=== PATIENT | female | born 1945 | race Caucasian/White ===

== ENCOUNTER 2018-11-14 07:12 | Day surgery (SDC) | payer OTHER ==
[~2018-11-14 07:12] MED LIST: BRIMONIDINE TARTRATE 0.2% OPTH SOL OP PRN; BSS WITH EPINEPHRINE OP ONE; DEX-MOXI-KETOR OPTH INJ 1/0.5/0.4 MG/ML IO ONE; LIDOCAINE 1% 20 ML MDV ID STA; LIDOCAINE 1%/PHENYLEPHRINE 1.5% BSS (SURGERY) INTRAOCULA ONE; ZOFRAN 4 MG/2 ML IVP ONE
[2018-11-14] MEDS: TETRACAINE 0.5% UNIT-DOSE OP PRN ×2 (07:20→08:00)
[2018-11-14] MEDS: BETADINE OPTH PREP OP PRN ×2 (07:20→08:00)
[2018-11-14] MEDS: CYCLOGYL 2% OPTH OP PRN ×3 (07:20→07:30)
[2018-11-14] MEDS ORDERED: VERSED ONE (08:15)
[2018-11-14 14:18] VITALS: TEMP 97.2
[2018-11-15 16:53] VITALS: BP 121/77
== END 2018-11-14 09:05 | disposition home or self-care (01) ==
LOC: SURG 07:12
PROVIDERS: ATTEND Ophthalmology
DX: H25.812 Combined forms of age-related cataract, left eye (principal)

== ENCOUNTER 2018-11-28 07:09 | Day surgery (SDC) ==
[2018-11-28] MEDS: CYCLOGYL 2% OPTH OP PRN ×3 (07:15→07:25)
[2018-11-28] MEDS: BETADINE OPTH PREP OP PRN ×2 (07:15→07:57)
[2018-11-28] MEDS: TETRACAINE 0.5% UNIT-DOSE OP PRN ×2 (07:15→07:57)
[2018-11-28] MEDS ORDERED: VERSED ONE (08:00)
[2018-11-28] MEDS ORDERED: ZOFRAN 4 MG/2 ML ONE (08:00)
[2018-11-28 11:16] VITALS: TEMP 97.6
[2018-11-29 15:10] VITALS: BP 114/67
== END 2018-11-28 09:00 | disposition home or self-care (01) ==
LOC: SURG 07:09
PROVIDERS: ATTEND Ophthalmology
DX: H25.811 Combined forms of age-related cataract, right eye (principal)